=== PATIENT | male | born 1990 | race Caucasian/White ===

== ENCOUNTER 2017-07-11 00:58 | Emergency (ER) | payer OTHER ==
[~2017-07-11 00:58] MED LIST: ALBUAER2 INH; FLVHFA44 INH; MONT1TAB3 PO; TRIA0.1C55 TD
[2017-07-11 01:05] VITALS: TEMP 36.8; Ht 172.7 cm
[2017-07-11] MEDS ORDERED: DEXAMETHASONE SOD INJ 4 MG/ML VIAL IV STA (01:18)
[2017-07-11] MEDS ORDERED: ALBUT/IPRATROP 3MG/0.5MG NEB 3 ML VIAL INH STA ×2 (01:18→09:52)
[2017-07-11 01:41] LABS: BASO % 0.4 %; BASO ABS # 0.04 K/uL (0-0.2); EOS % 1.1 %; EOS ABS # 0.11 K/uL (0-0.5); HEMATOCRIT 46.3 % (42-52); IG# 0.03 K/uL (0.00-0.02); MEAN CELL VOLUME 82.8 fL (80-100); MEAN CORPUSCULAR HEMOGLOBIN 28.6 pg (25-34); MEAN CORPUSCULAR HGB CONC 34.6 g/dl (32-36); MEAN PLATELET VOLUME 9.3 fL (7.4-10.4); MONO % 8.7 %; MONO ABS # 0.86 K/uL (0.11-0.59); NEUT % 85.5 %; NEUT ABS # 8.47 K/uL (1.4-6.5); PLATELET COUNT 172 K/uL (130-400); RED CELL DISTRIBUTION WIDTH CV 13.6 % (11.5-14.5); RED CELL DISTRIBUTION WIDTH SD 40.8 fL (36.4-46.3); WHITE BLOOD COUNT 9.91 K/uL (4.8-10.8)
[2017-07-11] MEDS ORDERED: ONDANSETRON INJ 2 MG/ML 2 ML VIAL ONE (02:25)
[2017-07-11 02:58] LABS: ALBUMIN 4.4 gm/dl (3.4-5.0); ALKALINE PHOSPHATASE 71 U/L (45-117); ALT/SGPT 37 U/L (12-78); AST/SGOT 18 U/L (15-37); BLOOD UREA NITROGEN 10 mg/dl (7-18); CALCIUM 9.3 mg/dl (8.5-10.1); CARBON DIOXIDE 25 mmol/L (21-32); CREATININE 1.21 mg/dl (0.60-1.40); GLUCOSE 107 mg/dl (70-99); POTASSIUM 3.6 mmol/L (3.5-5.1); SODIUM 135 mmol/L (136-145); TOTAL PROTEIN 8.3 gm/dl (6.4-8.2)
[2017-07-11 03:04] LABS: INFLUENZA B ANTIGEN Neg for Influ B (NEG)
[2017-07-11] MEDS ORDERED: OSELTAMIVIR PHOSPHATE 75 MG CAP PO STA (03:42)
[2017-07-11] MEDS ORDERED: KETOROLAC TROMETHAMINE 30 MG/ML VIAL IV STA (03:42)
[2017-07-11] MEDS ORDERED: OSEL75CA12 PO (04:16)
--- NOTE | 2017-07-11 04:17 | EMERGENCY ROOM VISIT NOTE ---
History First contact with patient: 01:09 (Columba Britt PA-C) First contact with patient: 09:55 (Ela Best PA-C) Chief Complaint: BACK PAIN Stated Complaint: BACK AND GROIN PAIN,ASTHMA,FEVER History of Present Illness The patient is a 27 year old male who presents to the Emergency Room with complaints of illness and asthma exacerbation. The patient states that throughout the day, he has had a difficult time breathing. He states he has had wheezing and cough. He believes that he has had a fever throughout the day. He states that this evening, he has also developed pain in his low back and left hip. The patient has a history of lumbar fracture and left femur fracture and states that this pain does flareup occasionally. He has been using his inhalers at home without relief. He denies any nausea/vomiting or diarrhea. He did not receive a flu vaccine this year. (Columba Britt PA-C) Review of Systems A complete 10 point review of systems was reviewed with the patient with pertinent positives and negatives as per history of present illness. All else were negative. (Columba Britt PA-C) Past Medical/Surgical History Medical Problems: (1) Asthma (Ela Best PA-C) Social History Smoking Status: Never Smoker Housing Status: lives with family (Columba Britt PA-C) Current/Historical Medications Scheduled Albuterol Hfa (Ventolin Hfa), 2 PUFFS INH QID Oseltamivir (Tamiflu), 75 MG PO BID Physical Exam Vital Signs Date Time Temp Pulse Resp B/P (MAP) Pulse Ox O2 Delivery O2 Flow Rate FiO2 07/11/17 10:06 106 20 125/66 100 Nebulizer 07/11/17 08:09 103 20 134/69 94 Room Air 07/11/17 06:29 93 17 113/70 99 Room Air 07/11/17 05:25 86 18 117/69 97 Room Air 07/11/17 03:25 100 19 94 Room Air 07/11/17 01:05 36.8 107 20 124/79 94 Room Air (Ela Best PA-C) Physical Exam VITALS: Vitals are noted on the nurse's note and reviewed by myself. Vital signs stable. GENERAL: This is a 27-year-old male, in no acute distress, nondiaphoretic, well- developed well-nourished. SKIN: The skin was without rashes. EARS: External auditory canals clear. Tympanic membranes mildly injected bilaterally. EYES: Pupils equal round and reactive to light and accommodation. Conjunctivae without injection. MOUTH: Mucous membranes moist. Tonsils are not enlarged. Pharynx without erythema or exudate. NECK: Supple without nuchal rigidity. No lymphadenopathy. HEART: Regular rate and rhythm without murmurs gallops or rubs. LUNGS: Diffuse expiratory wheezes. No accessory muscle use. ABDOMEN: Soft, nontender to palpation. MUSCULOSKELETAL: Mild tenderness to palpation of the lumbar paraspinous muscles with some spasms present in the left paraspinous muscles. No midline tenderness. NEURO: Patient was alert and oriented to person place and time. (Columba Britt, LAURAC) Medical Decision & Procedures ER Provider Diagnostic Interpretation: CHEST X-RAY: No focal consolidation to suggest pneumonia. No acute cardiopulmonary abnormalities. (Columba Britt, LAURAC) Laboratory Results 07/11/17 01:25 Red Blood Count 5.59, Mean Corpuscular Volume 82.8, Mean Corpuscular Hemoglobin 28.6, Mean Corpuscular Hemoglobin Concent 34.6, Mean Platelet Volume 9.3, Neutrophils (%) (Auto) 85.5, Lymphocytes (%) (Auto) 4.0, Monocytes (%) (Auto) 8.7, Eosinophils (%) (Auto) 1.1, Basophils (%) (Auto) 0.4, Neutrophils # (Auto) 8.47, Lymphocytes # (Auto) 0.40, Monocytes # (Auto) 0.86, Eosinophils # (Auto) 0.11, Basophils # (Auto) 0.04 07/11/17 01:25 Test 07/11/17 01:25 07/11/17 06:07 White Blood Count 9.91 K/uL (4.8-10.8) Red Blood Count 5.59 M/uL (4.7-6.1) Hemoglobin 16.0 g/dL (14.0-18.0) Hematocrit 46.3 % (42-52) Mean Corpuscular Volume 82.8 fL (80-100) Mean Corpuscular Hemoglobin 28.6 pg (25-34) Mean Corpuscular Hemoglobin Concent 34.6 g/dl (32-36) Platelet Count 172 K/uL (130-400) Mean Platelet Volume 9.3 fL (7.4-10.4) Neutrophils (%) (Auto) 85.5 % Lymphocytes (%) (Auto) 4.0 % Monocytes (%) (Auto) 8.7 % Eosinophils (%) (Auto) 1.1 % Basophils (%) (Auto) 0.4 % Neutrophils # (Auto) 8.47 K/uL (1.4-6.5) Lymphocytes # (Auto) 0.40 K/uL (1.2-3.4) Monocytes # (Auto) 0.86 K/uL (0.11-0.59) Eosinophils # (Auto) 0.11 K/uL (0-0.5) Basophils # (Auto) 0.04 K/uL (0-0.2) RDW Standard Deviation 40.8 fL (36.4-46.3) RDW Coefficient of Variation 13.6 % (11.5-14.5) Immature Granulocyte % (Auto) 0.3 % Immature Granulocyte # (Auto) 0.03 K/uL (0.00-0.02) Anion Gap 8.0 mmol/L (3-11) Estimated GFR () 95.9 Estimated GFR (Non- 82.7 BUN/Creatinine Ratio 8.2 (10-20) Calcium Level 9.3 mg/dl (8.5-10.1) Total Bilirubin 0.5 mg/dl (0.2-1) Aspartate Amino Transf (AST/SGOT) 18 U/L (15-37) Alanine Aminotransferase (ALT/SGPT) 37 U/L (12-78) Alkaline Phosphatase 71 U/L (45-117) Troponin I < 0.015 ng/ml (0-0.045) Total Protein 8.3 gm/dl (6.4-8.2) Albumin 4.4 gm/dl (3.4-5.0) Globulin 3.9 gm/dl (2.5-4.0) Albumin/Globulin Ratio 1.1 (0.9-2) Influenza Type A Antigen POS for Influ A (NEG) Influenza Type B Antigen Neg for Influ B (NEG) Bedside D-Dimer 229 ng/mlFEU (0-450) (Ela Best, PASimranC) Medications Administered Medications (Trade) Dose Ordered Sig/Mikal Route Start Time Stop Time Status Last Admin Dose Admin Albuterol/ Ipratropium (Duoneb) 3 ml NOW STAT INH 07/11/17 01:18 07/11/17 01:20 DC 07/11/17 01:30 3 ML Dexamethasone Sodium Phosphate (Decadron Inj) 10 mg NOW STAT IV 07/11/17 01:18 07/11/17 01:20 DC 07/11/17 01:31 10 MG Ketorolac Tromethamine (Toradol Inj) 30 mg NOW STAT IV 07/11/17 03:42 07/11/17 03:43 DC 07/11/17 04:13 30 MG Oseltamivir Phosphate (Tamiflu Cap) 75 mg NOW STAT PO 07/11/17 03:42 07/11/17 03:43 DC 07/11/17 03:42 75 MG Albuterol/ Ipratropium (Duoneb) 3 ml NOW STAT INH 07/11/17 09:52 07/11/17 09:53 DC 07/11/17 10:03 3 ML Ibuprofen (Motrin Tab) 600 mg NOW STAT PO 07/11/17 09:52 07/11/17 09:53 DC 07/11/17 10:03 600 MG (Ela Best PA-C) ECG Rate (beats per minute): 104 Rhythm: sinus tachycardia Findings: T-wave inversion (Anterolateral), no ectopy Comparison ECG Date: no prior available (Columba Britt PA-C) ED Course The patient was evaluated as above. Labs were drawn and IV access was obtained. Patient was medicated with a DuoNeb treatment and 10 mg Decadron. Patient was reevaluated and was complaining of back pain. He was given 30 mg Toradol with good relief. He was given an initial dose of Tamiflu. The case was discussed with the [facility] full stack engineer, Dr. Perez due to abnormal EKG. He recommended echocardiogram and will evaluate the patient's EKG. Care of the patient was signed out to Ela Best PA-C at change of shift. (Columba Britt PA-C) Medical Decision Differential diagnosis includes pneumonia, influenza, asthma exacerbation, upper respiratory infection, pericarditis, myocarditis, among others. The patient is a 27-year-old male who presents today complaining of respiratory symptoms. Labs revealed no leukocytosis. Chest x-ray showed no evidence of pneumonia. Influenza A was positive. Patient was treated with a DuoNeb treatment and Decadron with good relief of symptoms. He was treated with Toradol for his back pain and felt much better. The patient's EKG showed T- wave inversions in the V3, V4, V5 and V6. EKG was repeated when the patient was slightly less tachycardic but was still abnormal. I discussed the case with Dr. Perez of cardiology, who suspected possible pericarditis secondary to the influenza. He recommended echocardiogram and will evaluate the patient's EKG. Care of the patient was signed out to Ela Best PA-C at change of shift pending the results of the echocardiogram. (Columba Britt PA-C) Medication Reconcilliation Current Medication List: was personally reviewed by me (Columba Britt PA-C) Blood Pressure Screening Patient's blood pressure: Normal blood pressure (Columba Britt PA-C) Impression Primary Impression: Influenza A Departure Information Dispostion Home / Self-Care Condition GOOD Prescriptions Albuterol Hfa (VENTOLIN HFA) 200 Puffs/41973 Mcg Aers 2 PUFFS INH QID, #1 INHALER 1 Refill Prov: Ela Best PA-C 07/11/17 Oseltamivir (Tamiflu) 75 Mg Cap 75 MG PO BID for 5 Days, #9 CAP Prov: Columba Britt PA-C 07/11/17 Referrals No Doctor, Assigned (PCP) Patient Instructions My [facility] Additional Instructions Tamiflu as prescribed, one capsule twice daily for a total of 5 days. For pain control, you can use the following [id number] medicines (if >12 yo): - Regular strength (325mg/tab) Tylenol (acetaminophen) 2 tabs every 4-6 hours as needed. Do not exceed 12 tablets in a 24 hour period. Avoid taking more than 4 grams (4000 mg) of Tylenol per day. This includes any other sources of acetaminophen you may take on a regular basis. - Regular strength (200 mg/tab) Advil (ibuprofen) 1-2 tabs every 4-6 hours as needed. Do not exceed a dose of 3200 mg per day. Use the Ventolin inhaler for your difficulty breathing. Follow-up with the primary care provider for recheck. Return to the emergency department with worsening respiratory symptoms, chest pain, high fevers not controlled by Tylenol or ibuprofen or any other new/ concerning symptoms.
--- NOTE | 2017-07-11 07:24 | DIAGNOSTIC IMAGING REPORT ---
CHEST ONE VIEW PORTABLE CLINICAL HISTORY: shortness of breath COMPARISON STUDY: Chest radiograph and chest CT February 25, 2012. FINDINGS: Lung volumes are normal. No pneumothorax or pleural effusion is present. Pulmonary vascularity is normal. No consolidation is identified. Cardiomediastinal silhouette is normal. IMPRESSION: No acute cardiopulmonary findings. Electronically signed by: Dilshad Tolbert M.D. 07/11/2017 7:23 AM Dictated Date/Time: 07/11/2017 7:22 AM
[2017-07-11] MEDS ORDERED: IBUPROFEN 600 MG TAB PO STA (09:52)
--- NOTE | 2017-07-11 09:57 | ECHOCARDIOGRAM REPORT ---
*NOTICE TO RECEIVING DEMOCRAT AGENCY This information is strictly Confidential and protected under [place] law. [place] law prohibits you from making any further disclosure of this information unless further disclosure is expressly permitted by the written consent of the person to whom it pertains or is authorized by law. A general authorization for the release of medical or other information is not sufficient for this purpose. Hospital accepts no responsibility if the information is made available to any other person, INCLUDING THE PATIENT. Interpretation Summary * Name: ANA LAURA SANTOS Study Date: 07/11/2017 08:15 AM BP: 134/69 mmHg * Patient Location: ED HR: 103 * : 1990 (M/d/yyyy) Gender: Male Height: 68 in * Age: 27 yrs Ethnicity: [place] * Referring Physician: Self, Referred * Performed By: Carol Bond RDCS * * Reason For Study: ABNORMAL EKG, POSSIBLE PERICARDITIS * This was essentially a normal study. * Normal bi-ventricular function * All chambers of normal size and function * -- Conclusions -- * This was essentially a normal study. * All chambers of normal size and function * Normal bi-ventricular function * No significant valvular pathology. Procedure Details * A complete two-dimensional transthoracic echocardiogram was performed (2D, M-mode, Doppler and color flow Doppler). Left Ventricle * The left ventricle is normal in size. * There is normal left ventricular wall thickness. * Ejection Fraction = 55-60%. * Left ventricular systolic function is normal. * The left ventricular wall motion is normal. Right Ventricle * The right ventricle is normal size. * The right ventricular systolic function is normal. Atria * The left atrial size is normal. * Right atrial size is normal. * The interatrial septum is intact with no evidence for an atrial septal defect. Mitral Valve * The mitral valve is normal in structure and function. Tricuspid Valve * The tricuspid valve is normal in structure and function. Aortic Valve * The aortic valve is normal in structure and function. Pulmonic Valve * The pulmonic valve is not well visualized. * There is no significant pulmonary regurgitation. Great Vessels * The aortic root and proximal ascending aorta are normal sized. Pericardium/Pleural * There is no pericardial effusion. MMode 2D Measurements and Calculations IVSd 0.87 cm IVSs 1.2 cm LVIDd 4.7 cm LVIDs 3.3 cm LVPWd 1.1 cm LVPWs 1.4 cm IVS/LVPW 0.81 FS 29.6 % EDV(Teich) 103.1 ml ESV(Teich) 44.8 ml EF(Teich) 56.6 % EDV(cubed) 104.8 ml ESV(cubed) 36.6 ml EF(cubed) 65.1 % % IVS thick 42.7 % % LVPW thick 28.5 % LV mass(C)d 159.9 grams LV mass(C)s 145.6 grams SV(Teich) 58.3 ml SV(cubed) 68.2 ml Ao root diam 2.9 cm Ao root area 6.4 cm\S\2 LA dimension 2.6 cm LA/Ao 0.93 LVAd ap4 31.0 cm\S\2 LVLd ap4 9.2 cm EDV(MOD-sp4) 87.3 ml EDV(sp4-el) 88.9 ml LVAs ap4 18.5 cm\S\2 LVLs ap4 7.8 cm ESV(MOD-sp4) 37.2 ml ESV(sp4-el) 37.3 ml EF(MOD-sp4) 57.5 % EF(sp4-el) 58.0 % LVAd ap2 31.8 cm\S\2 LVLd ap2 9.7 cm EDV(MOD-sp2) 87.8 ml EDV(sp2-el) 88.9 ml LVAs ap2 18.9 cm\S\2 LVLs ap2 8.3 cm ESV(MOD-sp2) 37.7 ml ESV(sp2-el) 36.5 ml EF(MOD-sp2) 57.0 % EF(sp2-el) 58.9 % LVLd %diff 4.8 % EDV(MOD-bp) 89.4 ml LVLs %diff 6.2 % ESV(MOD-bp) 38.1 ml EF(MOD-bp) 57.4 % SV(MOD-sp4) 50.2 ml SV(MOD-sp2) 50.1 ml SV(MOD-bp) 51.3 ml SV(sp4-el) 51.6 ml SV(sp2-el) 52.4 ml Doppler Measurements and Calculations Ao V2 max 160.5 cm/sec Ao max PG 10.3 mmHg Ao max PG (full) 3.4 mmHg LV V1 max PG 6.9 mmHg LV V1 max 131.0 cm/sec
[2017-07-11 10:06] VITALS: BP 125/66; PULSE 106; O2SAT 100
[2017-07-11] MEDS ORDERED: VNTHFA/IN INH (10:18)
--- NOTE | 2017-07-11 10:18 | EMERGENCY ROOM VISIT NOTE ---
ED Visit Note First contact with patient: 09:55 Received patient in sign out from Columba Vallejo PA-C. The patient presented today complaining of back pain, and EKG showed some evidence of LVH and inverted T waves. There was concern for possible pericarditis in the setting of the positive influenza test. The patient was to wait for an echocardiogram and to have the echo read by Dr. Perez. Dr. Perez was already involved and contacted by Columba. After the echocardiogram was completed, the patient asked nursing staff if he could leave. I did go in to speak with the patient. He states he is extremely frustrated, as he had the echocardiogram performed, and he is tired and would like to go. He states he feels that his concerns are not being addressed. He states he continues to have back pain, feels that his wheezing and coughing has worsened, and asked for blankets hours ago, and has not received them. I discussed the patient's concerns with him and his female friend at bedside. I provided the patient with warm blankets, offered another DuoNeb treatment, and offered ibuprofen to help with the patient's back pain. He was agreeable to this, and states he is appreciative. I discussed the patient's lung sounds. He initially had some wheezing and rhonchi, however after coughing he is improved. The patient was given a second DuoNeb treatment, and 600 mg ibuprofen. I reassessed the patient and return to discuss echocardiogram results. The patient's wheezing has improved, and his coughing is better. A cardiogram did not show any signs of acute pericarditis. Dr. Perez felt comfortable that the patient could be discharged home with treatment for influenza. The patient was concerned that he does not have an inhaler to help with his asthma and wheezing at home. I did send a Ventolin inhaler to the pharmacy for him. He was thankful for this. He was encouraged to treat his pain OTC with Tylenol and/or Motrin. Prior to discharge, the patient did request a work note for today. He does work as a cook, and with his diagnosis of influenza, I do feel that it is reasonable to keep the patient out of work for at least one week. He was advised to refrain from working until he has 24 hours without a fever. He was given a work note. Discharge instructions were reviewed, the patient was discharged home in good condition.
== END 2017-07-11 11:10 | disposition home or self-care (01) ==
LOC: C.EDB 01:00
DX: J10.1 Influenza due to other identified influenza virus with other respiratory manifestations (principal); M54.9 Dorsalgia, unspecified; R94.31 Abnormal electrocardiogram [ECG] [EKG]; J45.909 Unspecified asthma, uncomplicated; Z87.81 Personal history of (healed) traumatic fracture

== ENCOUNTER 2017-11-10 21:59 | Emergency (ER) | payer SELFPAY ==
[~2017-11-10 21:59] MED LIST changes: -ALBUAER2 INH; -FLVHFA44 INH; -MONT1TAB3 PO; -TRIA0.1C55 TD; +VNTHFA/IN INH
[2017-11-10] MEDS ORDERED: VNTHFA/IN INH (23:13)
[2017-11-10] MEDS ORDERED: CEPH500C PO (23:26)
[2017-11-10] MEDS ORDERED: TRAM-10 PO (23:26)
== END 2017-11-10 22:18 | disposition left against medical advice (07) ==
LOC: C.EDB 22:01
DX: S61.411A Laceration without foreign body of right hand, initial encounter (principal); X58.XXXA Exposure to other specified factors, initial encounter; Z53.21 Procedure and treatment not carried out due to patient leaving prior to being seen by health care provider

== ENCOUNTER 2017-11-10 22:05 | Emergency (ER) | payer SELFPAY ==
[~2017-11-10] VITALS: Ht 172.7 cm; Wt 84.1 kg
[2017-11-10 22:23] VITALS: BP 129/74; PULSE 68; TEMP 37; O2SAT 99; Ht 172.7 cm; Wt 84.1 kg
[2017-11-10] MEDS ORDERED: VNTHFA/IN INH (23:13)
--- NOTE | 2017-11-10 23:23 | DIAGNOSTIC IMAGING REPORT ---
RIGHT THUMB 3 VIEWS CLINICAL HISTORY: Right thumb injury. FINDINGS: 3 views of the right thumb are obtained. No prior studies are available for comparison at the time of dictation. The skeletal structures are well mineralized. There is a minimally distracted and comminuted fracture through the tuft of the first distal phalanx with overlying soft tissue edema. No additional fracture is seen. The first metacarpophalangeal and interphalangeal joints are well-maintained. IMPRESSION: There is a comminuted and minimal distracted fracture through the tuft of the first distal phalanx as above. Electronically signed by: Jesse Karimi M.D. 11/10/2017 11:21 PM Dictated Date/Time: 11/10/2017 11:20 PM
[2017-11-10] MEDS ORDERED: CEPH500C PO (23:26)
[2017-11-10] MEDS ORDERED: TRAM-10 PO (23:26)
[2017-11-10] MEDS ORDERED: CEPHALEXIN 500MG HOME PACK 1 EA BTL PO ONE (23:30)
[2017-11-10] MEDS ORDERED: TRAMADOL HCL 50 MG HOME PACK PO ONE (23:30)
--- NOTE | 2017-11-11 00:36 | EMERGENCY ROOM VISIT NOTE ---
History First contact with patient: 22:30 Chief Complaint: HAND PAIN/INJURY Stated Complaint: RIGHT HAND INJURY History of Present Illness The patient is a 27 year old male who presents to the Emergency Room with complaints of an injury to his right thumb. The patient reports tripping while walking through a doorway and catching his thumb in the door. Reports a small laceration at the tip of the finger and under the fingernail. He denies any pain through the base of the thumb or wrist. He denies paresthesias or numbness of the hand or fingers. Tetanus immunization is up-to-date. The patient rates his discomfort a 4 out of 10. The patient is right-hand dominant. Review of Systems 10 system review was performed and was negative except for pertinent positives and negatives as indicated in history of present illness Past Medical/Surgical History Medical Problems: (1) Asthma Medical Problems: (1) Asthma (2) Attn Defic Nonhyperact (3) DVT (deep venous thrombosis) (4) Traum Pneumothorax-Close Surgical Problems: (1) History of intramedullary nail, left femur Family History Not known due to adoption Social History Smoking Status: Never Smoker Alcohol Use: occasionally Marital Status: single Housing Status: lives with family, lives with significant other Occupation Status: [employer] student Current/Historical Medications Scheduled Cephalexin Monohydrate (Keflex), 500 MG PO TID Scheduled PRN Albuterol Hfa (Ventolin Hfa), 2 PUFFS INH QID PRN for ASTHMA ATTACK Tramadol (Ultram), 1-2 TAB PO Q4H PRN for Pain Physical Exam Vital Signs Date Time Temp Pulse Resp B/P (MAP) Pulse Ox O2 Delivery O2 Flow Rate FiO2 11/10/17 22:23 37.0 68 20 129/74 99 Room Air Physical Exam CONSTITUTIONAL: Healthy and well nourished. Alert and oriented X 3 with positive affect. Patient appears in mild discomfort from pain. HEENT: Normocephalic, atraumatic. Pupils equal, round and reactive. NECK: Full active range of motion without discomfort. RESPIRATORY: Clear to auscultation bilaterally with no wheezing, crackles, rhonchi or stridor. CARDIOVASCULAR: Regular rate and rhythm with no murmurs, rubs or gallops. MUSCULOSKELETAL: Examination of the right thumb shows a small laceration under the free edge of the nail plate. Otherwise the patient has no tenderness to palpation through the IP or MCP joint. Capillary refill is less than 2 seconds. Nail plate appears intact. INTEGUMENTARY: No rash or other significant dermatologic conditions noted. NEUROLOGIC: Right thumb is sensory intact. Medical Decision & Procedures ER Provider Diagnostic Interpretation: My interpretation the right thumb x-ray shows a small tuft fracture. No IP dislocation noted. Radiologist report is pending. Medications Administered Medications (Trade) Dose Ordered Sig/Mikal Route Start Time Stop Time Status Last Admin Dose Admin Cephalexin Monohydrate (Keflex 500MG Home Pack) 1 homepack NOW ONCE PO 11/10/17 23:30 11/10/17 23:31 DC 11/10/17 23:53 1 HOMEPACK Tramadol HCl (Ultram Home Pack) 1 homepack UD ONCE PO 11/10/17 23:30 11/10/17 23:31 DC 11/10/17 23:53 1 HOMEPACK ED Course Patient history and physical exam were performed. Nurse's notes were reviewed. Vital signs were reviewed and were normal. The patient refused any analgesics on initial exam. X-rays of the right thumb shows a small tuft fracture. Because the patient does have a small wound under the edge of the nail, I did suggest covering him with antibiotics to minimize risk for infection. The patient was provided a home pack and prescription for Keflex and tramadol. He was encouraged to intermittently apply ice and elevate the hand for swelling. Ibuprofen and Tylenol for baseline pain relief. The patient was provided contact information for Dr. Feldman, hand surgeon. The patient was happy with plan of care, voiced understanding of all discharge instructions, and rated his overall discomfort a 4 out of 10 at the conclusion of my exam. Medical Decision [place] Drug Monitoring Program Search Results: patient reviewed within database, no issues identified Medication Reconcilliation Current Medication List: was personally reviewed by me Blood Pressure Screening Patient's blood pressure: Normal blood pressure Impression Primary Impression: Fracture of thumb, right open Departure Information Dispostion Home / Self-Care Prescriptions Tramadol (Ultram) 50 Mg Tab 1-2 TAB PO Q4H Y for Pain, #15 TAB For Initial Treatment Prov: Jaquan Dickens PA 11/10/17 Cephalexin Monohydrate (Keflex) 500 Mg Cap 500 MG PO TID for 7 Days, #21 CAP Prov: Jaquan Dickens PA 11/10/17 Referrals Jer Feldman MD Forms HOME CARE DOCUMENTATION FORM, IMPORTANT VISIT INFORMATION Patient Instructions My [facility] Additional Instructions Keep wound clean and covered with an antibiotic ointment and dressing until it heals. Intermittently apply ice and elevate hand for swelling and pain. Complete all Keflex antibiotics as prescribed. Ibuprofen 800 mg and/or Tylenol 1000 mg every 8 hours. You may also alternate these medications for more effective pain relief: Ibuprofen --4 HRS--> Tylenol --4 HRS--> ibuprofen --4 HRS--> Tylenol .... Ultram if needed for worse pain. Return to the emergency department for any signs of developing infection. Follow-up with [facility] (Dr. Feldman, hand surgeon) with any further problems or concerns. Problem Qualifiers Primary Impression: Fracture of thumb, right open Encounter type: initial encounter Phalanx: distal Fracture alignment: nondisplaced Qualified Codes: S62.524B - Nondisplaced fracture of distal phalanx of right thumb, initial encounter for open fracture
== END 2017-11-10 23:55 | disposition home or self-care (01) ==
LOC: C.EDB 22:07 → C.EDC 23:55
DX: S62.524B Nondisplaced fracture of distal phalanx of right thumb, initial encounter for open fracture (principal); W18.49XA Other slipping, tripping and stumbling without falling, initial encounter; W22.8XXA Striking against or struck by other objects, initial encounter; Y93.01 Activity, walking, marching and hiking; Y99.8 Other external cause status; J45.909 Unspecified asthma, uncomplicated; Z86.718 Personal history of other venous thrombosis and embolism; Z98.890 Other specified postprocedural states